=== PATIENT | female | born 1930 | race African-American/Black ===

== ENCOUNTER → 2016-12-05 | Outpatient (CLI) | payer MEDICARE, OTHER ==
[2013-12-09 17:10] VITALS: BP 197/83
--- NOTE | 2016-12-06 08:22 | KCIC ---
EXAM: Dual energy x-ray absorptiometry (DEXA). HISTORY: Postmenopausal female presents for osteoporosis screening. COMPARISON: None. TECHNIQUE: Dual energy x-ray absorptiometry of the lumbar spine and the left hip was performed. Calculation of bone mineral density based on standard deviations above or below the expected young adult normal value (T-score) was completed. FINDINGS: The average bone mineral density in the 1st through 4th lumbar vertebrae is 0.946 g/cmxcm, corresponding with a T-score of -0.9. The average total bone mineral density in the left hip is 0.715 g/cmxcm, corresponding with a T-score of -1.9. IMPRESSION: 1. Osteopenia measured at the left hip. 2. Normal bone mineral density measured at the lumbar spine. Note: Definitions established by the World Health Organization: 1. Normal: T-score is -1.0 or above. 2. Osteopenia: T-score is between -1.0 and -2.5 . 3. Osteoporosis: T-score is -2.5 or below. Electronically signed by: Deena Olivares MD (12/06/2016 8:19 AM)
== END | disposition home or self-care (01) ==
LOC: KCIC DEXA 15:25
PROVIDERS: ATTEND Internal Medicine
DX: M81.0 Age-related osteoporosis without current pathological fracture (principal); M85.88 Other specified disorders of bone density and structure, other site; Z78.0 Asymptomatic menopausal state
CPT/HCPCS: 77080

== ENCOUNTER 2016-12-14 11:18 | Emergency (ER) | payer MEDICARE ==
[2016-12-14 11:28] VITALS: BP 173/77
--- NOTE | 2016-12-14 12:12 | PHYS DOC ---
Past Medical History Past Medical History: Hypertension Past Surgical History: Other Additional Past Surgical Histo: herniated disc Alcohol Use: None Drug Use: None Adult General Chief Complaint Chief Complaint: MECHANICAL FALL HPI HPI Patient is a 86 year old female presents to the emergency stating that 6 days ago she was downstairs on the concrete sweeping it when she tripped and fell. She states she is having pain to the left ankle and foot area. She has been able to ambulate although has increased pain. She states during the day today ankle swells and foot swells and at night the swelling goes down. She has not taken anything for pain and discomfort. She denies any numbness or tingling into the toes. She has good sensation to the toes. Peripheral pulses 2+. Review of Systems Review of Systems Constitutional: Denies fever or chills [] Eyes: Denies change in visual acuity, redness, or eye pain [] HENT: Denies nasal congestion or sore throat [] Respiratory: Denies cough or shortness of breath [] Cardiovascular: No additional information not addressed in HPI [] GI: Denies abdominal pain, nausea, vomiting, bloody stools or diarrhea [] : Denies dysuria or hematuria [] Musculoskeletal: Denies back pain. C/o left ankle and foot pain Integument: Denies rash or skin lesions [] Neurologic: Denies headache, focal weakness or sensory changes [] Endocrine: Denies polyuria or polydipsia [] Allergies Allergies Allergies Coded Allergies Type Severity Reaction Last Updated Verified No Known Drug Allergies 12/09/13 No Physical Exam Physical Exam Constitutional: Well developed, well nourished, no acute distress, non-toxic appearance. [] HENT: Normocephalic, atraumatic, bilateral external ears normal, oropharynx moist, no oral exudates, nose normal. [] Eyes: PERRLA, EOMI, conjunctiva normal, no discharge. [] Neck: Normal range of motion, no tenderness, supple, no stridor. [] Cardiovascular:Heart rate regular rhythm, no murmur [] Lungs & Thorax: Bilateral breath sounds clear to auscultation [] Skin: Warm, dry, no erythema, no rash. [] Back: No tenderness Extremities: Left ankle and foot tenderness, no cyanosis, no clubbing, ROM intact, no edema. Patient with swelling to the ankle and foot area. Peripheral pulses 2+ cap refill brisk 2 seconds. Good sensation noted to the toes and foot. Neurologic: Alert and oriented X 3, normal motor function, normal sensory function, no focal deficits noted. [] Psychologic: Affect normal, judgement normal, mood normal. [] Current Patient Data Vital Signs Vital Signs Date Time Temp Pulse Resp B/P (MAP) Pulse Ox O2 Delivery O2 Flow Rate FiO2 12/14/16 11:28 98.1 60 20 99 Room Air 98.1 EKG EKG [] Radiology/Procedures Radiology/Procedures [][facility] [address] [place] [address] IMAGING REPORT Signed PATIENT: PHUONG DONOHUE ACCOUNT: [id number] : 1930 LOCATION: ER AGE: 86 SEX: F EXAM [id number] STATUS: REG ER ORD. PHYSICIAN: DANELLE SANTIAGO APRN REASON: tripped and fell pain PROCEDURE: ANKLE LEFT 3V; FOOT LEFT 3V Indication fall, pain. AP oblique and lateral views of the left ankle were obtained. Similar AP oblique and lateral views of the left foot were also obtained. Films of the ankle show no acute finding. Significant degenerative changes are not seen particularly given the patient's age. Some soft tissue swelling is noted. Imaging of the foot shows no definite acute finding. There is a tiny bone fragment seen, on the lateral view, adjacent to the distal talus. This probably is chronic. A minute avulsion fracture off the talus is not entirely excluded. Clinical correlation as to this possibility and focal tenderness advised. IMPRESSION: No definite acute finding seen involving the foot or ankle. Small avulsion fracture off the talus is not entirely excluded. Clinical correlation as to this possibility advised DICTATED and SIGNED BY: REUBEN MATT MD DATE: 12/14/16 1222 CC: DANELLE SANTIAGO APRN; SAPNA MARMOLEJO MD ~ Course & Med Decision Making Course & Med Decision Making Pertinent Labs and Imaging studies reviewed. (See chart for details) X-rays cannot come from whether she had a talus child the patient is tender on the area. She was placed in a posterior short leg splint with a walker. She'll be provided with orthopedic to follow up with. Recommended Tylenol or ibuprofen for pain and discomfort. Recommended ice packs on 20 minutes off 20 minutes several times a day and elevation as much as possible. Patient will be discharged home in stable condition signs and symptoms to return back to emergency department as been provided. Patient was also instructed that weightbearing on the left foot or ankle. [] Dragon Disclaimer Dragon Disclaimer This electronic medical record was generated, in whole or in part, using a voice recognition dictation system. Departure Departure Impression: Primary Impression: Ankle pain, left Disposition: HOME, SELF-CARE Condition: STABLE Referrals: SAPNA MARMOLEJO MD (PCP) REBECA MARCELINO MD Patient Instructions: Ankle Pain, Splint Care, [id number], Walker-Brief Additional Instructions: Activity as tolerated. Tylenol or ibuprofen for pain and discomfort. Keep the splint clean and dry. Do not remove the splint until seen by orthopedic. No weightbearing on the left ankle or foot area. Ice packs on 20 minutes off 20 minutes several times a day. Elevation as much as possible Use the walker to help with ambulation up with orthopedic within the next week. Return back to emergency department sign symptoms of become worse. Splinting Splinting : Location: left foot/ankle Hand-Made Type: orthoglass Splint: posterior short leg Pre-Proc Neuro Vasc Exam: normal Post-Proc Neuro Vasc Exam: normal DANELLE SANTIAGO APRN Dec 14, 2016 12:12
--- NOTE | 2016-12-14 12:29 | RAD ---
Indication fall, pain. AP oblique and lateral views of the left ankle were obtained. Similar AP oblique and lateral views of the left foot were also obtained. Films of the ankle show no acute finding. Significant degenerative changes are not seen particularly given the patient's age. Some soft tissue swelling is noted. Imaging of the foot shows no definite acute finding. There is a tiny bone fragment seen, on the lateral view, adjacent to the distal talus. This probably is chronic. A minute avulsion fracture off the talus is not entirely excluded. Clinical correlation as to this possibility and focal tenderness advised. IMPRESSION: No definite acute finding seen involving the foot or ankle. Small avulsion fracture off the talus is not entirely excluded. Clinical correlation as to this possibility advised
== END 2016-12-14 14:04 | disposition home or self-care (01) ==
LOC: ER 11:18
DX: M25.572 Pain in left ankle and joints of left foot (principal); I10 Essential (primary) hypertension; W01.0XXA Fall on same level from slipping, tripping and stumbling without subsequent striking against object, initial encounter; Y93.89 Activity, other specified; Y99.8 Other external cause status; Y92.89 Other specified places as the place of occurrence of the external cause
CPT/HCPCS: 29515; 73610; 73630; 99284-25